=== PATIENT | male | born 1975 | race Caucasian/White ===

== ENCOUNTER 2022-06-10 13:52 | Outpatient (CLI) | payer BC, SELFPAY ==
--- NOTE | ~2022-06-10 | CT_ITS ---
EXAMINATION: CT sinus wo con DATE: 06/10/2022 14:09 INDICATION: Deviated nasal septum TECHNIQUE: Computed tomography (CT) of the paranasal sinuses was performed without contrast. Iterativ e reconstruction technique was employed. Exam dose: 280.89 mGy-cm total exam DLP. COMPARISON: None FINDINGS: There is leftward deviation of the nasal septum. The nasal turbinates are prominent but relatively symmetric in size. There is mild mucoperiosteal thickening along the floor of the right maxillary sinus. The paranasal s inuses are otherwise normally developed and aerated. The ostiomeatal units are patent bilaterally. The mastoid air cells are normally developed and aerated bilaterally. Middle and inner ear apparatus are unremarkable. IMPRESSION: Leftward deviation of nasal septum Prominent cyst of the nasal turbinates Mild mucoperiosteal thickening at the floor of the right maxillary sinus Reviewed, dictated and finalized at [facility]. Reviewed, dictated and finalized at location [facility]. UER
== END 2022-06-10 13:53 ==
PROVIDERS: PCP Family Medicine; Visit Provider Otolaryngology
DX: J34.2 Deviated nasal septum (principal); J34.1 Cyst and mucocele of nose and nasal sinus
CPT/HCPCS: 70486

== ENCOUNTER 2022-08-04 00:18 | Day surgery (SDC) | payer BC, SELFPAY ==
[2022-07-23 08:45] VITALS: BMI 29.6
--- NOTE | 2022-07-23 08:54 | PC.NURSE ---
Report to the Outpatient Waiting Room, entrance under the green pavilion located off [facility], at time 0700 on date 08/04/22. Planned Procedure Time: 0900. Time changes happen often and if your time is changed the preop area will call you the afternoon before. - You and your visitor will be asked to self-screen and do not enter if you have any COVID symptoms. - Only one visitor is requested with a max of two and NO children visitors are allowed at this time. - The patient visitor may be requested to leave or wait in car when not with patient due to distancing restrictions. - A mask is optional within the hospital at this time. Patients may have clear liquids (water, carbonated beverages, clear teas, apple juice) until 3 hours prior to surgery with a maximum of 20 ounces. - No food from midnight until time of surgery Take the following medications with a SIP of water the morning of surgery: METOPROLOL DO NOT STOP ANY OF YOUR OTHER PRESCRIPTION MEDICATIONS PRIOR TO SURGERY EXCEPT THE FOLLOWING Medications to discontinue per physician: VITAMINS Date to take last dose: 07/31/[address] DECKER REGARDING ASPIRIN AND PLAVIX Please no make-up, nail sami, hairspray, perfume, deodorant, or body powder the day of surgery. No jewelry (including any body piercings) or valuables the day of surgery, leave them at home. Please take a shower or bath the night before, or the morning of, surgery with an antibacterial soap. Wear comfortable, loose fitting clothing. - Jewelry must be removed prior to entering the operating room. Rings and piercings that are not removed may be cut off. - The hospital will not accept responsibility for valuables. - Please leave all valuables, including medications, at home the day of surgery. If you are going home after surgery, a licensed class a regional truck driver must drive you home. - NO public transportation without another adult if you receive anesthesia. - We recommend that an adult stay with you for 24 hours following discharge. - We also recommend that you do not drive, make important decision, drink alcoholic beverages, or take any drugs that were not prescribed by your health care provider for at least 24 hours after your discharge time. Follow any additional instructions given to you from your surgeon. If you or anyone in your household have experienced Covid symptoms in the past week, please notify your surgeon or the nurse liaison at the phone number below for possible testing. Telephone instructions given to PT - RAF PAIGE and asked if any additional questions and then verbalized understanding. Patient advised to call surgeon office or pre surgery nurse liaison [phone] if any additional questions.
[2022-08-04] VITALS (8 sets, daily range): BP systolic 133–176; BP diastolic 80–97; PULSE 56–91; RESP 14–18; TEMP 36.7–37; O2SAT 95–100
--- NOTE | 2022-08-04 07:44 | ECG_ITS ---
Measurements Intervals [place] Rate: 80 P: 29 SD: 120 QRS: 26 QRSD: 82 T: 36 QT: 353 QTc: 409 Interpretive Statements SINUS RHYTHM NORMAL ECG COMPARED TO ECG 08/20/2018 23:22:25 NO SIGNIFICANT CHANGES Electronically Signed On 08-04-2022 14:13:35 PREMIUM SERVICE REPRESENTATIVE by Amari Arriaga M.D.
--- NOTE | 2022-08-04 08:00 | WPDANESEPPF ---
Anes - Initial Pre Proc Eval Procedure: Operation Date: 08/04/22 09:00 Proposed Procedures p Septoplasty - Chito Tinajero MD s Bilateral Turbinate Reduction, Right Maxillary Antrostomy, Left Nasal Valve Repair - Chito Tinajero MD Date/Time: 08/04/22 08:00 Surgeon: Chito Tinajero MD Pre Op Diagnosis: deviated septum, chronic sinusitis Patient Data Age: 47 Gender: M Height: 1.85 m Weight: 102 kg Allergies Allergy/AdvReac Type Severity Reaction Status Date / Time No Known Allergies Allergy Verified 07/23/22 08:43 Home Medications Medication Instructions Recorded Confirmed Type aspirin 81 mg tablet,delayed 81 mg PO DAILY 01/31/20 07/23/22 History release clopidogrel 75 mg tablet (Plavix) 75 mg PO DAILY 01/31/20 07/23/22 History lisinopril 5 mg tablet 5 mg PO DAILY 01/31/20 07/23/22 History metoprolol tartrate 25 mg tablet 25 mg PO BID 01/31/20 07/23/22 History nitroglycerin 0.4 mg sublingual 0.4 mg sublingual Q5M PRN Chest 01/31/20 07/23/22 History tablet Pain atorvastatin 80 mg tablet (Lipitor) 40 mg PO DAILY 04/02/21 07/23/22 History multivitamin 1 tablet PO DAILY 07/23/22 07/23/22 History Patient hx anesthesia problems: none Family hx anesthesia problems: none Results Review: All pre-operative results and documents have been reviewed as part of the pre-operative evaluation. [facility] Past Medical History Medical History (Updated 04/08/22 @ 15:52 by Fernando Mayo PA-C) CAD (coronary artery disease) HLD (hyperlipidemia) HTN (hypertension) Obesity Surgical History Surgical History History of adenoidectomy History of amputation of finger distal R middle finger History of sinus surgery S/P coronary artery stent placement Family History Family History Father Family history of diabetes mellitus in first degree relative Family history of coronary artery disease Mother Family history of coronary artery disease Social History Social History Smoking packs per day: 0.5 Smoking cigarettes per day: 10.0 Years smoked: 20 Smoking pack-years: 10.00 Smoking status: Current every day smoker Tobacco type: cigarettes Second hand tobacco smoke exposure: No Alcohol intake: current Alcohol use details: VERY RARE Substance use: never Substance use type: does not use Living arrangements: with family Occupation/Education: occupation Gender identity (if verbalized by the patient): Male Spiritual care concerns: No Anes - Eval Final PreProcedure Day of Procedure 08/04/22 08:00 Patient weight: overweight Heart: regular rate and rhythm Lungs: clear to auscultation Airway: Mallampati scale class II Neurological: alert and oriented Last oral intake: >/= 8 hours ASA classification: III Emergent: no Anesthetic plan: proceed Anesthesia type and monitoring: general ETT and standard monitoring Results Review: All pre-operative results and documents have been reviewed as part of the pre-operative evaluation. Informed Consent: The patient's anesthetic plan and its attendant risks and benefits were discussed with the patient/family/POA. Questions were solicited and answers provided to the satisfaction of the patient/family/POA.
[2022-08-04] MEDS: ACETAMINOPHEN 500 MG TABLET 1000 MG PO (08:30)
[2022-08-04] MEDS: OXYMETAZOLINE HCL 0.05% NAS 15 ML BTL (*BKC) 1 SPRAY NASAL ×2 (08:30→09:10)
[2022-08-04] MEDS: LACTATED RINGERS 1,000 ML 30 ML IV CONT (08:30)
--- NOTE | 2022-08-04 08:30 | W.PM.PROC2 ---
Procedure Note - Detailed Date of Procedure 08/04/22 Pre-op Diagnosis deviated septum, chronic sinusitis Post-op Diagnosis Same Procedure Performed Septoplasty, turbinoplasty, right maxillary antrostomy, left nasal valve repair Surgeon Chito Tinajero MD Anesthesia General Indications Nasal dyspnea, chronic sinusitis Findings left septal deviation, turbinate hypertrophy, right maxillary sinusitis without polyp or purulent rhinorrhrea. Wide antrostomy performed. Left nasal valve collapse addressed with harvested septal cartilage and alar jade graft. Neff splints placed. Description of Procedure DESCRIPTION OF PROCEDURE: After obtaining informed consent and proper site verification the patient was brought to the operating room and placed on the operating table in the supine position. They were placed under general endotracheal anesthesia by the anesthesia provider. The patient was then draped in standard fashion for septoplasty and turbinoplasty. A timeout was performed and the correct patient and procedure were verified. The nasal cavity was injected with 1% lidocaine with 1-100,000 epinephrine and packed with afrin-soaked cottonoid pledgets. Attention was then directed to the nasal septum. A hemitransfixion incision was made in the left caudal septum and a mucoperichondrial flap was elevated in the usual fashion. The flap was elevated under endoscopic visualization and the remainder of the case was performed with endoscopic assistance. Using a D-knife, an incision was made through the cartilaginous septum with care to preserve the appropriate caudal and dorsal ?L-strut? of cartilage. The cartilage was then disarticulated from the bony-cartilaginous junction and the deviated cartilage was removed. Further deviated bone and cartilage was removed from the maxillary crest and posterior bony septum with care to avoid injury to the mucoperichondrial flap using a combination of dissection and Alessandro-Evelyn forceps. Once this was completed, the hemitransfixion incision was closed using simple interrupted 4-0 chromic suture. A quilting stitch to reapproximate the mucoperichondrial flaps was then placed using 4-0 plain gut suture on a Monster needle.? The cartilage was set aside and saved for later grafting. Next attention was directed to the turbinates. Using a 0? telescope and 2mm turbinate blade microdebrider, a stab incision was made in the anterior face of the turbinate and dissection was carried posterior to perform submucosal resection. Next the turbinate was outfractured using a blunt instrument. A similar procedure was then performed on the right-hand side without difficulty. On the right side, the middle turbinate was medialized. Uncinate reflected anteriorly with joey probe. Backbiter used to perform uncinectomy and maxillary antrostomy. Refined using microdebrider to finish maxillary antrostomy. The previously harvested septal cartilage was then carved into an appropriately sized alar jade graft.? A left sided marginal incision wase made through the vestibular nasal skin.? Using curved iris scissors, a pocket was dissected laterally along the lower lateral crura out to the piriform aperture for placement of the graft.? The graft was then placed into the dissected pockets on the left.? Once secure, the incision was closed with 4-0 chromic suture. Neff splints covered in mupirocin ointment were placed in the nasal cavity and secured to the membranous septum using a 3-0 Prolene suture. The patient was awakened from general anesthesia extubated in the operating room, and transported to the recovery room in stable condition without complication. Chito Tinajero M.D. Estimated Blood Loss 100 Drains No Packing Yes (neff splints bilaterally) Pathology None sent Complications No immediate complications Condition Stable Disposition PACU
--- NOTE | 2022-08-04 08:34 | P.HP_ITS ---
H&P: HPI History of Present Illness Date/Time: 08/04/22 08:34 Chief Complaint: Nasal dyspnea, chronic sinusitis Narrative: Nasal dyspnea, chronic sinusitis Review of Systems Review of Systems: All systems reviewed & are unremarkable except as noted in HPI and below [facility] Past Medical History Medical History (Updated 08/04/22 @ 08:36 by Chito Tinajero MD) CAD (coronary artery disease) HLD (hyperlipidemia) HTN (hypertension) Obesity Surgical History Surgical History History of adenoidectomy History of amputation of finger distal R middle finger History of sinus surgery S/P coronary artery stent placement Family History Family History Father Family history of diabetes mellitus in first degree relative Family history of coronary artery disease Mother Family history of coronary artery disease Social History Social History Smoking packs per day: 0.5 Smoking cigarettes per day: 10.0 Years smoked: 20 Smoking pack-years: 10.00 Smoking status: Current every day smoker Tobacco type: cigarettes Second hand tobacco smoke exposure: No Alcohol intake: current Alcohol use details: VERY RARE Substance use: never Substance use type: does not use Living arrangements: with family Occupation/Education: occupation Gender identity (if verbalized by the patient): Male Spiritual care concerns: No Meds Home Medications and Allergies Home Medications Medication Instructions Recorded Confirmed Type aspirin 81 mg tablet,delayed 81 mg PO DAILY 01/31/20 07/23/22 History release clopidogrel 75 mg tablet (Plavix) 75 mg PO DAILY 01/31/20 07/23/22 History lisinopril 5 mg tablet 5 mg PO DAILY 01/31/20 07/23/22 History metoprolol tartrate 25 mg tablet 25 mg PO BID 01/31/20 07/23/22 History nitroglycerin 0.4 mg sublingual 0.4 mg sublingual Q5M PRN Chest 01/31/20 07/23/22 History tablet Pain atorvastatin 80 mg tablet (Lipitor) 40 mg PO DAILY 04/02/21 07/23/22 History multivitamin 1 tablet PO DAILY 07/23/22 07/23/22 History Allergies Allergy/AdvReac Type Severity Reaction Status Date / Time No Known Allergies Allergy Verified 07/23/22 08:43 Exam Narrative: Left SD, turbinate hypertrophy, nasal valve collapse on left, right maxillary sinusitis, rest of exam wnl. Assessment and Plan Assessment and plan (1) Deviated septum: Code(s): J34.2 - Deviated nasal septum Status: Acute Plan Niels is here for septoplasty, turbinoplasty, left nasal valve repair and right maxillary antrostomy. r/b/a/ reviewed, pt understands and agrees to proceed. Refer to outpt H&P for full details.
--- NOTE | 2022-08-04 08:36 | WPDHPUPDATE1 ---
History and Physical Update Update Date/Time: 08/04/22 08:36 History and Physical has been reviewed, including an updated exam of the patient. There are NO changes in the patient's condition. Risks, benefits, and alternatives have been discussed and questions answered. Patient agrees to proceed with procedure.
[2022-08-04] MEDS: ceFAZolin 2 GM/D5W 50 ML 2 GM/50 ML BAG IVPB (09:00)
[2022-08-04] MEDS: MUPIROCIN 2% OINT 22 GM TUBE 1 APPLIC EACH NARE (09:43)
[2022-08-04] MEDS: LIDO 1%/EPINEPHRINE 1:100,000 20 ML VIAL INFILTRATE (10:06)
--- NOTE | 2022-08-04 11:08 | SUR.PHASEI ---
Notified Dr. Tinajero of patient's continued oozing from nose with drip pad being changed 4x in recovery.
== END 2022-08-04 12:06 | disposition home or self-care (01) ==
PROVIDERS: PCP Family Medicine; Visit Provider Otolaryngology
PROC: (CPT 30520; principal; 2022-08-04 09:00)
PROC: (CPT 31256; 2022-08-04 09:00)
DX: J34.2 Deviated nasal septum (principal); J34.3 Hypertrophy of nasal turbinates; J32.0 Chronic maxillary sinusitis; J34.89 Other specified disorders of nose and nasal sinuses; I25.10 Atherosclerotic heart disease of native coronary artery without angina pectoris; E78.5 Hyperlipidemia, unspecified; I10 Essential (primary) hypertension; E66.9 Obesity, unspecified; Z68.29 Body mass index [BMI] 29.0-29.9, adult; Z95.5 Presence of coronary angioplasty implant and graft; Z79.82 Long term (current) use of aspirin; Z79.02 Long term (current) use of antithrombotics/antiplatelets; F17.210 Nicotine dependence, cigarettes, uncomplicated
CPT/HCPCS: 31256; 30999; 30520; 30140; 93005; A9270; J0690; J1100; J1170; J2250; J2405; J2704; J2710; J7120

== ENCOUNTER 2024-03-25 00:15 | Day surgery (SDC) | payer BC, SELFPAY ==
[2024-03-25] VITALS (16 sets, daily range): BP systolic 110–125; BP diastolic 55–94; PULSE 53–71; RESP 10–16; TEMP 36.7; O2SAT 95–99; BMI 29.0
[2024-03-25 07:38] LABS: Basophils Percent Auto 0.3 % (0.2-1.2); Eosinophils Absolute Auto 0.1 K/mm3 (0-0.3); Eosinophils Percent Auto 1.3 % (0-4.4); Hematocrit 43.9 % (42.0-52.0); Immature Granulocyte Absolute 0.02 K/mm3 (0.00-0.031); Immature Granulocyte Percent A 0.2 % (0-0.5); Lymphocytes Absolute Auto 2.34 K/mm3 (0.9-3.2); Lymphocytes Percent Auto 25.3 % (18.3-44.2); Mean Corpuscular HGB Conc 34.2 g/dl (32-36); Mean Corpuscular Volume 90.7 fl (80-100); Mean Platelet Volume 11.8 fl (7.4-10.4); Monocytes Absolute Auto 0.7 K/mm3 (0.1-0.6); Monocytes Percent Auto 7.3 % (2.6-8.5); Neutrophils Absolute Auto 6.1 K/mm3 (1.3-6.7); Neutrophils Percent Auto 65.6 % (45.5-73.1); Platelet Count Result 160 k/mm3 (150-375); Red Blood Count 4.84 M/mm3 (4.6-6.20); Red Cell Distribution Width 12.1 % (11.5-14.5); White Blood Count 9.2 K/mm3 (4.5-10.0)
[2024-03-25 07:47] LABS: Anion Gap 7 mmol/L (4-12); Blood Urea Nitrogen 10 mg/dL (9-20); Calcium 9.5 mg/dL (8.4-10.2); Carbon Dioxide 27 mmol/L (22-30); Chloride 107 mmol/L (98-107); Estimated CRCL calculation 109 ml/min; Estimated Glomerular Filt Rate > 60; Glucose 99 mg/dL (65-110); Sodium 141 mmol/L (137-145)
--- NOTE | 2024-03-25 08:48 | WPDHPUPDATE1 ---
History and Physical Update Update Date/Time: 03/25/24 08:48 History and Physical has been reviewed, including an updated exam of the patient. There are NO changes in the patient's condition. Risks, benefits, and alternatives have been discussed and questions answered. Patient agrees to proceed with procedure.
--- NOTE | 2024-03-25 08:48 | WPDMODSED ---
Moderate Sedation Note-Pt Data Patient Data Diagnosis: Coronary artery disease, abnormal stress test Present Complaint: Coronary artery disease, abnormal stress test Procedure to be performed/Plan: Coronary angiography, left heart cath, +/- PCI Allergies Allergy/AdvReac Type Severity Reaction Status Date / Time No Known Allergies Allergy Verified 03/25/24 07:27 Home Medications Medication Instructions Recorded Confirmed Type aspirin 81 mg tablet,delayed 81 mg PO DAILY 01/31/20 03/24/24 History release clopidogrel 75 mg tablet (Plavix) 75 mg PO DAILY 01/31/20 03/24/24 History lisinopril 5 mg tablet 5 mg PO DAILY 01/31/20 03/24/24 History metoprolol tartrate 25 mg tablet 25 mg PO BID 01/31/20 03/24/24 History nitroglycerin 0.4 mg sublingual 0.4 mg sublingual Q5M PRN Chest 01/31/20 03/24/24 History tablet Pain atorvastatin 80 mg tablet (Lipitor) 40 mg PO DAILY 04/02/21 03/24/24 History Sedation/Anesthesia: No previous sedation/anesthesia problems (including family history). [facility] Past Medical History Medical History CAD (coronary artery disease) HLD (hyperlipidemia) HTN (hypertension) Obesity Surgical History Surgical History History of adenoidectomy History of amputation of finger distal R middle finger History of sinus surgery S/P coronary artery stent placement Family History Family History Father Family history of diabetes mellitus in first degree relative Family history of coronary artery disease Mother Family history of coronary artery disease Social History Social History Smoking packs per day: 0.5 Smoking cigarettes per day: 10.0 Years smoked: 20 Smoking pack-years: 10.00 Smoking status: Current every day smoker Tobacco type: cigarettes Second hand tobacco smoke exposure: No Alcohol intake: current Alcohol use details: VERY RARE Substance use: never Substance use type: does not use Living arrangements: with family Occupation/Education: occupation Gender identity (if verbalized by the patient): Male Spiritual care concerns: No Mod Sed Physical Exam Physical Exam Pre Procedural Exam: Normal: Appearance, Lungs, Heart Rate, Heart Rhythm, Neuro Exam, Extremities and Skin Hours since solid foods: 12 Hours since liquid intake: 8 Mallampati Classification: class III Internal Medicine - PN: Obj Da Vital Signs Vital Signs: Vital Signs - 24 hr 03/25/24 07:29 Temperature 36.7 C Pulse Rate 65 Respiratory Rate 16 Blood Pressure 125/85 Pulse Oximetry 99 Oxygen Delivery Room Air Labs 03/25/24 07:33 03/25/24 07:33 Labs: Laboratory Results - last 24 hr 03/25/24 07:33 WBC 9.2 RBC 4.84 Hgb 15.0 Hct 43.9 MCV 90.7 MCH 31.0 MCHC 34.2 RDW 12.1 Plt Count 160 MPV 11.8 H Immature Gran % (Auto) 0.2 Neut % (Auto) 65.6 Lymph % (Auto) 25.3 Lawrence % (Auto) 7.3 Eos % (Auto) 1.3 Baso % (Auto) 0.3 Lymph # (Auto) 2.34 [place] # (Auto) 0.7 H Eos # (Auto) 0.1 Baso # (Auto) 0.0 Abs Immat Gran (auto) 0.02 Absolute Neuts (auto) 6.1 Absolute Nucleated RBC 0.000 Nucleated RBC % 0.0 Sodium 141 Potassium 4.0 Chloride 107 Carbon Dioxide 27 Anion Gap 7 BUN 10 Creatinine 0.80 Estim Creat Clear Calc 109 Estimated GFR > 60 Glucose 99 Calcium 9.5 ASA Classification/Sedation ASA Classification/Sedation ASA Class: III Emergent: No Risks: Risks, benefits and alternatives explained and patient/family accepted plan for sedation. Patient re-evaluated immediately prior to sedation.
--- NOTE | 2024-03-25 08:49 | WPDCARDPROC ---
Cardiac Cath Procedure Note Date of procedure:: 03/25/24 Performing physician:: CATHETERIZATION LABORATORY REPORT Procedure Date: 03/25/2024 Tanker Service Attendant: Elmo Ashley M.D., [facility]? Referring Physician: Nicho Davis M.D. ? Anesthesia: Versed and Fentanyl were ordered and given in my presence at 09:14, procedure ended at 09:27. Supervision of nurse monitored moderate sedation with Versed and Fentanyl was provided for 13 minutes. Total of Versed 2mg and Fentanyl 50mcg were administered by the Director Of Partner Marketing RN Mario Rai. Pre-op Diagnosis: Coronary artery disease, abnormal stress test Post-op Diagnosis: Non-obstructive coronary artery disease. Patent LAD and RCA stents. Procedure(s): 1. Moderate sedation 2. Ultrasound-guided access of the right radial artery 3. Coronary angiography Access Site: Right radial artery Brief History and Clinical Indications: Patient is a 49 year old male with coronary artery disease with prior LAD and RCA stents who is referred for [facility] for abnormal stress test. All risks, benefits and alternatives to left heart catheterization with or without percutaneous coronary intervention was discussed at length with the patient. Risk of complications including but not limited to bleeding, infection, arrhythmia, stroke, worsening kidney function, blood loss, groin hematoma, limb loss, emergency coronary artery bypass grafting, and even were discussed with the patient and all questions were answered. The patient understood and wished to proceed. Time out called, patient name, date of , medical record number, allergies, procedure performed, identify Tanker Service Attendant, patient and staff member concurred with accurate data, procedure carried on. Findings: LEFT HEART CATHETERIZATION FINDINGS: 1. Left main: The left main coronary artery is widely patent without any significant obstructive disease. 2. Left anterior descending: Widely patent stent in the ostium of the LAD. The first diagonal branch is a small caliber vessel with mild diffuse disease. The mid portion of the LAD has mild disease. No significant obstructive angiographic disease. 3. Left circumflex: The left circumflex artery and the main marginal branches have luminal irregularities without any significant obstructive angiographic disease. 4. Right coronary artery: The RCA is the dominant vessel. Widely patent stent in the proximal-mid portion. Remainder of the RCA has luminal irregularities. No significant obstructive angiographic disease. Description of Procedure: Informed consent signed and placed in the chart. Patient transferred to photo lab technician room. Prepped and draped in usual sterile fashion. 2% lidocaine injected subcutaneously in right wrist area. 22-gauge venipuncture catheter used to access the right radial artery under ultrasound guidance. 6-FR slender sheath placed in right radial artery. Nitroglycerine and Verapamil were given intraarterial through the sheath. Versacore wire advanced under fluoroscopy 5F Tig 4 diagnostic catheter engaged Left Main Coronary Artery. 5F Tig 4 diagnostic catheter engaged Right Coronary Artery Multiple orthogonal angiogram obtained and reviewed Hemostasis was achieved by application of TR band. Disposition: Home Plan: The patient will be monitored in the recovery area. The above findings were discussed with the referring physician. Continue aggressive medical therapy and risk factor modification. ? Elmo Ashley M.D. Interventional Cardiology
== END 2024-03-25 13:50 | disposition home or self-care (01) ==
PROVIDERS: PCP Family Medicine; Visit Provider Internal Medicine
PROC: (CPT 93454; principal; 2024-03-25 08:30)
DX: I25.10 Atherosclerotic heart disease of native coronary artery without angina pectoris (principal); R94.39 Abnormal result of other cardiovascular function study; Z95.5 Presence of coronary angioplasty implant and graft; I10 Essential (primary) hypertension; E78.5 Hyperlipidemia, unspecified; Z79.82 Long term (current) use of aspirin; Z79.02 Long term (current) use of antithrombotics/antiplatelets; F17.210 Nicotine dependence, cigarettes, uncomplicated
CPT/HCPCS: 36415; 80048; 85025; 93454; C1769; C1887; C1894; J1644; J2250; J2305; J3010; J7040